=== PATIENT | female | born 1995 | race Hispanic/Latino ===

== ENCOUNTER 2019-05-09 13:03 | Emergency (ER) | payer OTHER, SELFPAY ==
[2019-05-09 13:44] LABS: #Eosinphils 0.1 thou/uL (0.0-0.7); #Lymphocytes 1.6 thou/uL (1.20-3.40); #Monocytes 0.4 thou/uL (0.11-0.59); #Neutrophils 5.3 thou/uL (1.40-6.50); %Basophils 0.5 % (0.0-1.0); %Eosinophils 0.8 % (0.0-10.0); %Lymphocytes 21.3 % (21.0-51.0); %Monocytes 5.5 % (0.0-10.0); %Neutrophils 71.9 % (42.0-75.0); Hemoglobin 12.8 g/dL (12.0-16.0); Mean Corpuscular HGB CONC 34.2 g/dL (32.0-36.0); Mean Corpuscular Hemoglobin 28.2 pg (27.0-31.0); Mean Corpuscular Volume 82.3 fL (78.0-98.0); Mean Platelet Volume 9.7 fL (7.4-10.4); Platelet Count 177 thou/uL (130-400); RBC Distribution Width 12.7 % (11.5-14.5); Red Blood Cell (RBC) Count 4.53 mill/uL (4.20-5.40); White Blood Cell (WBC) Count 7.4 thou/uL (4.8-10.8)
[2019-05-09 14:01] LABS: Bacteria/HPF None Seen HPF (None Seen); Bilirubin Negative (Negative); Blood, Urine Trace (Negative); Clarity Clear (Clear); Glucose, Urine (Dipstick) Normal (Negative); Leukocyte Negative Leu/uL (Negative); Nitrite Negative (Negative); Protein, Urine (Dipstick) Negative (Neg-Trace); RBC/HPF 0-3 HPF (0-3); Urobilinogen Normal mg/dL (Less than 2); WBC/HPF 0-3 HPF (0-3)
[2019-05-09 14:16] LABS: ALT (SGPT) 19 U/L (8-55); AST (SGOT) 16 U/L (5-34); Albumin 4.1 g/dL (3.5-5.0); Alkaline Phosphatase 91 U/L (40-110); Anion Gap 9 mmol/L (10-20); BUN (Urea Nitrogen) 8 mg/dL (7.0-18.7); Bilirubin, Total 0.3 mg/dL (0.2-1.2); Calc. Creatinine Clearance 0 mL/min (70-130); Calcium 9.2 mg/dL (7.8-10.44); Carbon Dioxide 26 mmol/L (22-29); Chloride 105 mmol/L (98-107); Estimated GFR-MDRD Greater than 90; Globulin 2.9 g/dL (2.4-3.5); Glucose 80 mg/dL (70-105); Sodium 136 mmol/L (136-145)
--- NOTE | 2019-05-09 14:42 | ULT ---
OB ULTRASOUND: INDICATION: Vaginal spotting. FINDINGS: There is a single viable intrauterine . Gestational age by ultrasound is 15 weeks 1 day. B iometry measurements are consistent. heart rate: 141. Placenta: Anterior. position: Transverse. Amniotic fluid: Adequate. Cervical length: 3.0 cm. No evidence of placenta previa. Limited anatomy evaluation. The 4-chamber heart, cord insertion, bladder, extremities, and 3-vessel cord were imaged. IMPRESSION: Fifteen-week 1 day gestation by ultrasound. No abnormality identified. POS: [facility]
== END 2019-05-09 16:44 | disposition home or self-care (01) ==
LOC: ERS 13:03
DX: O20.9 Hemorrhage in early pregnancy, unspecified (principal)
CPT/HCPCS: 36415; 76815; 80053; 81003; 81015; 85025; 86900; 86901

== ENCOUNTER 2019-06-29 10:46 | Outpatient (CLI) | payer OTHER ==
--- NOTE | 2019-06-29 12:09 | ULT ---
EXAM: Obstetrical ultrasound greater than 14 weeks: HISTORY: Encounter for supervision of normal first and second trimester, anatomy evaluation COMPARISON: 05/09/2019 FINDINGS: Single viable intrauterine fetus is noted in Cephalic presentation. heart rate equals 146 bpm. Placenta is fundal. Cervical length is 3.9. Amniotic fluid is Within normal limits. anatomy: Visualized brain, 4 chamber heart, chest, three-vessel cord, cord insert, stomach, bladder, kid neys, spine, and extremity regions are unremarkable. biometry: BPD: 5.5 cm--22 weeks 5 days Head circumference: 20.3 cm--22 weeks 3 days Abdominal circumference: 17.2 cm--22 weeks 2 days Femur length:4.1 cm--23 weeks 3 days IMPRESSION: Gestational age by ultrasound: 22 weeks 5 days MIAH by ultrasound: 10/28/2019 Estimated weight: 522 g
== END 2019-06-29 10:47 | disposition home or self-care (01) ==
LOC: BICULT 10:46
PROVIDERS: ATTEND Family Medicine
DX: Z34.02 Encounter for supervision of normal first pregnancy, second trimester (principal); Z3A.22 22 weeks gestation of pregnancy
CPT/HCPCS: 76805

== ENCOUNTER 2019-08-19 21:20 | Day surgery (SDC) | payer OTHER ==
[2019-08-19 22:00] VITALS: BMI 49.8
[2019-08-19] MEDS ORDERED: hydrALAZINE 20 MG/ML VIAL SLOW IVP PRN (22:23)
[2019-08-19] MEDS ORDERED: Acetaminophen 500 MG TAB PO SCH (22:45)
[2019-08-19 23:11] LABS: Bacteria/HPF None Seen HPF (None Seen); Bilirubin Negative (Negative); Blood, Urine Negative (Negative); Clarity Clear (Clear); Glucose, Urine (Dipstick) Normal (Negative); Leukocyte Negative Leu/uL (Negative); Nitrite Negative (Negative); Protein, Urine (Dipstick) 30 mg/dL (Neg-Trace); RBC/HPF 0-3 HPF (0-3); Squamous Epithelial 0-3 HPF (0-3); Urobilinogen Normal mg/dL (Less than 2)
--- NOTE | 2019-08-20 01:18 | SS ---
DATE OF ADMISSION: 08/19/2019 DATE OF DISCHARGE: 08/19/2019 REGULAR PHYSICIAN: Bulmaro Heath MD EVALUATING PHYSICIAN: Ashish Ontiveros MD CHIEF COMPLAINT: Abdominal pain. HISTORY OF PRESENT ILLNESS: Ms. Esteves is a 24-year-old, , G2, P0, with an estimated date of confinement of 11/05/2019, who presents complaining of sharp periumbilical pain, which she noticed earlier this morning. She denies associated leakage of fluid or vaginal bleeding. Her care has been with Dr. Heath. This is the product of IVF done by Dr. Miles in [place]. PAST OBSTETRICAL HISTORY: Includes 1 previous miscarriage after an IVF attempt. PAST MEDICAL HISTORY: None. 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 Tonsillectomy and adenoidectomy have also been performed. CURRENT MEDICATIONS: vitamins. ALLERGIES: NO KNOWN ALLERGIES. SOCIAL HISTORY: Denies tobacco, alcohol, or drug use. FAMILY HISTORY: Unremarkable. REVIEW OF SYSTEMS: Denies nausea, vomiting, fever, chills, ruptured membranes, or vaginal bleeding. PHYSICAL EXAMINATION: VITAL SIGNS: In triage, her vital signs are stable. She is afebrile. GENERAL: She is pleasant. ABDOMEN: Abdominal exam shows the abdomen to be gravid. There is no guarding or rebound, but there is some tenderness to palpation at this superior aspect of the old midline incision. heart rate tracing is stable. There are no uterine contractions seen. LABORATORY STUDIES: Urinalysis returned showing a specific gravity of 1.030 with negative leukocytes, negative nitrites, trace protein. Microscopic shows 0 to 3 rbc's, 4 to 6 wbc's, 0 to 3 squamous, and no bacteria seen. ASSESSMENT: 1. 28- and 6/7-week intrauterine . 2. Tenderness at superior aspect of the old abdominal scar. 3. No evidence of labor PLAN: The nature of her findings tonight were discussed with her in detail. She was told to rest and use Tylenol for any discomfort. I have asked her to follow up with Dr. Heath early next week for review of her symptoms. Job ID: [id number] MTDD
== END 2019-08-19 23:40 | disposition home or self-care (01) ==
LOC: L&D/OP 21:20
PROVIDERS: ATTEND Family Medicine
DX: O99.89 Other specified diseases and conditions complicating pregnancy, childbirth and the puerperium (principal); R10.815 Periumbilic abdominal tenderness; O09.293 Supervision of pregnancy with other poor reproductive or obstetric history, third trimester; Z3A.28 28 weeks gestation of pregnancy
CPT/HCPCS: 81003; 81015

== ENCOUNTER 2019-09-25 18:03 | Day surgery (SDC) | payer OTHER ==
[2019-09-25] MEDS ORDERED: hydrALAZINE 20 MG/ML VIAL SLOW IVP PRN (18:08)
[2019-09-25 18:44] VITALS: BP 131/101; TEMP 98.4; BMI 52.2
--- NOTE | 2019-09-25 19:04 | PDOC.LDHP ---
Labor and Delivery H&P Chief complaint: other (bleeding) HPI: 24 y/o G1 at 39w2d, patient of Dr. Whitmore, presents with vaginal bleeding. She reports she started bleeding this morning, it resolved, and then returned. Denies abdominal pain, LOF, or decreased FM. ROS neg for HEENT, cv, pulm, gi, gu, neuro, psych, skin, musculoskeletal or constitutional symptoms other than mentioned above. OB History Details: First Current complications: none Past Medical History: None Current medications: pre-joana vitamins Previous surgical history: none Allergies/Adverse Reactions: Allergies Allergy/AdvReac Type Severity Reaction Status Date / Time No Known Allergies Allergy Verified 09/25/19 18:33 Social history: none - Physical Exam Vital signs reviewed and normal: yes General: NAD, resting Lungs: nonlabored breathing Abdomen: gravid Extremeties: no edema FHT: category 1 (145, mod variability, + accels, no decels) [place] contractions every: intermittent - Vaginal Exam cm dilated: 1 (unchanged from clinic) Effacement: 0% Station: -3 - OB Labs Blood type: B RH: positive - Assessment 24 y/o G1 at 39w2d with no e/o active bleeding on speculum exam at this time. No e/o abruption, active labor or acute process. status reassuring with reactive NST. - Plan -: D/c home with precautions. Advised to keep appointment for tomorrow.
[2019-09-25 19:09] LABS: #Basophils 0.1 thou/uL (0.0-0.2); #Eosinphils 0.1 thou/uL (0.0-0.7); #Lymphocytes 1.7 thou/uL (1.20-3.40); #Monocytes 0.4 thou/uL (0.11-0.59); #Neutrophils 7.1 thou/uL (1.40-6.50); %Basophils 0.9 % (0.0-1.0); %Eosinophils 0.6 % (0.0-10.0); %Lymphocytes 18.1 % (21.0-51.0); %Monocytes 3.7 % (0.0-10.0); %Neutrophils 76.7 % (42.0-75.0); Hemoglobin 12.5 g/dL (12.0-16.0); Mean Corpuscular HGB CONC 35.2 g/dL (32.0-36.0); Mean Corpuscular Hemoglobin 28.9 pg (27.0-31.0); Mean Corpuscular Volume 82.2 fL (78.0-98.0); Mean Platelet Volume 9.4 fL (7.4-10.4); Platelet Count 188 thou/uL (130-400); RBC Distribution Width 13.4 % (11.5-14.5); Red Blood Cell (RBC) Count 4.34 mill/uL (4.20-5.40); White Blood Cell (WBC) Count 9.3 thou/uL (4.8-10.8)
--- NOTE | 2019-09-25 19:13 | PDOC.LDHP ---
Labor and Delivery H&P Chief complaint: other (BP check) HPI: 24 y/o G1 at 34w1d, patient of Dr. Heath presents for BP check. Patient had elevated BPs and was told to come in. Denies GERARDO, vision changes, RUQ pain, VB, LOF, ctx, or other concerns. +FM. IVF . ROS neg for HEENT, cv, pulm, gi, gu, neuro, psych, skin, musculoskeletal or constitutional symptoms other than mentioned above. OB History Details: First Current complications: none Past Medical History: Hx borderline ovarian tumor Current medications: pre-joana vitamins Previous surgical history: appendectomy, other (BSO, IVF) Allergies/Adverse Reactions: Allergies Allergy/AdvReac Type Severity Reaction Status Date / Time No Known Allergies Allergy Verified 09/25/19 18:33 Social history: none - Physical Exam Vital signs reviewed and normal: yes General: NAD, resting Lungs: nonlabored breathing Abdomen: gravid Extremeties: no edema FHT: category 1 (140s, mod variability, + accels, no decels) [place] contractions every: none - Assessment 24 y/o G1 at 34w1d with mild range BPs, normal labs and urine. No e/o preeclampsia at this time. status reassuring with reactive NST. - Plan -: D/c home with precautions. Has appt Wednesday. Advised to keep all appointments.
[2019-09-25 19:27] LABS: ALT (SGPT) Less than 7 U/L (8-55); AST (SGOT) 9 U/L (5-34); Albumin 3.3 g/dL (3.5-5.0); Alkaline Phosphatase 183 U/L (40-110); Anion Gap 13 mmol/L (10-20); BUN (Urea Nitrogen) 9 mg/dL (7.0-18.7); Bilirubin, Total Less than 0.2 mg/dL (0.2-1.2); Calc. Creatinine Clearance 323 mL/min (70-130); Carbon Dioxide 18 mmol/L (22-29); Chloride 109 mmol/L (98-107); Estimated GFR-MDRD Greater than 90; Globulin 3.4 g/dL (2.4-3.5); Glucose 72 mg/dL (70-105); Potassium 3.9 mmol/L (3.5-5.1); Protein, Total 6.7 g/dL (6.0-8.3); Sodium 136 mmol/L (136-145)
[2019-09-25 19:44] LABS: Creatinine, Urine 69.51 mg/dL (47-110)
== END 2019-09-25 20:11 | disposition home health service (06) ==
LOC: L&D/OP 18:03
PROVIDERS: ATTEND Family Medicine
DX: O99.89 Other specified diseases and conditions complicating pregnancy, childbirth and the puerperium (principal); R03.0 Elevated blood-pressure reading, without diagnosis of hypertension; Z3A.34 34 weeks gestation of pregnancy
CPT/HCPCS: 36415; 80053; 82570; 84156; 85025; 99283

== ENCOUNTER 2019-09-27 13:21 | Day surgery (SDC) | payer OTHER ==
[2019-09-27 14:11] VITALS: BMI 52.2
[2019-09-27 14:33] LABS: Hemoglobin 11.8 g/dL (12.0-16.0); Mean Corpuscular HGB CONC 34.3 g/dL (32.0-36.0); Mean Corpuscular Hemoglobin 28.1 pg (27.0-31.0); Mean Corpuscular Volume 81.8 fL (78.0-98.0); Platelet Count 203 thou/uL (130-400); RBC Distribution Width 13.5 % (11.5-14.5); Red Blood Cell (RBC) Count 4.22 mill/uL (4.20-5.40); White Blood Cell (WBC) Count 9.7 thou/uL (4.8-10.8)
--- NOTE | 2019-09-27 14:45 | ULT ---
ULTRASOUND BIOPHYSICAL PROFILE: DATE: 09/27/2019 HISTORY: 24-year-old female in third trimester, with gestational hypertension FINDINGS: breathin tone: 2 movement: 2 Amniotic fluid volume: 2 IMPRESSION: Normal biophysical profile score of 8 out of 8, excluding the nonstress test.
--- NOTE | 2019-09-27 14:49 | ULT ---
EXAM: OB ultrasound, biophysical profile, and umbilical artery ultrasound COMPARISON: None HISTORY: Gestational hypertension at 34 weeks TECHNIQUE: Multiplanar grayscale and color Doppler images were obtained in a transabdominal ult rasound. FINDINGS: There is a single live intrauterine with heart rate of 143 bpm. Estimated weight is 2449 g. Average age of the fetus based off today's examination is 35 weeks 0 days. BPD 8.86 cm -- 35 weeks 6 days HC 31.58 cm -- 35 weeks 5 days AC 30.01 cm -- 34 weeks 0 days FL 6.75 cm -- 34 weeks 5 days The placenta is anterior in location without focal abnormality. MARIA LUISA is 16.5 cm which is normal. The cervix is normal in length. There is no evidence of placenta previa. A biophysical profile was performed. The fetus scored 8 of 8, which is normal. An umbilical artery ultrasound was performed. There is persistent diastolic flow within the umbilical artery and normal umbilical artery ratios. IMPRESSION: 1. Single live intrauterine with estimated age of 35 weeks 0 days. 2. Normal biophysical profile 3. Unremarkable umbilical artery ultrasound
[2019-09-27 14:56] LABS: ALT (SGPT) Less than 7 U/L (8-55); AST (SGOT) 10 U/L (5-34); Albumin 3.4 g/dL (3.5-5.0); Alkaline Phosphatase 187 U/L (40-110); Anion Gap 13 mmol/L (10-20); BUN (Urea Nitrogen) 10 mg/dL (7.0-18.7); Bilirubin, Total 0.2 mg/dL (0.2-1.2); Calc. Creatinine Clearance 297 mL/min (70-130); Calcium 8.8 mg/dL (7.8-10.44); Carbon Dioxide 18 mmol/L (22-29); Chloride 111 mmol/L (98-107); Estimated GFR-MDRD Greater than 90; Globulin 3.4 g/dL (2.4-3.5); Glucose 99 mg/dL (70-105); Potassium 3.8 mmol/L (3.5-5.1); Protein, Total 6.8 g/dL (6.0-8.3); Sodium 138 mmol/L (136-145)
[2019-09-27 17:19] LABS: Creatinine, Urine 297.94 mg/dL (47-110)
--- NOTE | 2019-09-29 14:15 | ULT ---
EXAM: OB ultrasound, biophysical profile, and umbilical artery ultrasound COMPARISON: None HISTORY: Gestational hypertension at 34 weeks TECHNIQUE: Multiplanar grayscale and color Doppler images were obtained in a transabdominal ult rasound. FINDINGS: There is a single live intrauterine with heart rate of 143 bpm. Estimated weight is 2449 g. Average age of the fetus based off today's examination is 35 weeks 0 days. BPD 8.86 cm -- 35 weeks 6 days HC 31.58 cm -- 35 weeks 5 days AC 30.01 cm -- 34 weeks 0 days FL 6.75 cm -- 34 weeks 5 days The placenta is anterior in location without focal abnormality. MARIA LUISA is 16.5 cm which is normal. The cervix is normal in length. There is no evidence of placenta previa. A biophysical profile was performed. The fetus scored 8 of 8, which is normal. An umbilical artery ultrasound was performed. There is persistent diastolic flow within the umbilical artery and normal umbilical artery ratios. IMPRESSION: 1. Single live intrauterine with estimated age of 35 weeks 0 days. 2. Normal biophysical profile 3. Unremarkable umbilical artery ultrasound Transcribed Date/Time: 09/29/2019 2:15 PM
== END 2019-09-27 21:30 | disposition home health service (06) ==
LOC: L&D/OP 13:21
PROVIDERS: ATTEND Family Medicine
DX: O13.3 Gestational [pregnancy-induced] hypertension without significant proteinuria, third trimester (principal); Z3A.34 34 weeks gestation of pregnancy
CPT/HCPCS: 36415; 76815; 76819; 80053; 82570; 84156; 85027; 93975; 99283

== ENCOUNTER 2019-10-16 11:32 | Outpatient (CLI) | payer OTHER ==
[2019-10-17 13:12] LABS: SARS-CoV-2 MS2 Positive; SARS-CoV-2 N Gene Negative; SARS-CoV-2 S Gene Negative; SARS-CoV-2 orf1ab Negative
== END 2019-10-16 11:33 | disposition home or self-care (01) ==
LOC: SCSLAB 11:32
PROVIDERS: ATTEND Family Medicine
DX: Z01.812 Encounter for preprocedural laboratory examination (principal); Z11.59 Encounter for screening for other viral diseases
CPT/HCPCS: 87635; U0003

== ENCOUNTER 2019-10-18 19:30 | Inpatient (IN) | payer OTHER ==
[2019-10-18] MEDS: Lactated Ringer's 1,000 ML IV SCH (21:00)
[2019-10-18 21:01] VITALS: BMI 50.5
[2019-10-18] MEDS ORDERED: Misoprostol 200 MCG TAB PR PRN (21:18)
[2019-10-18] MEDS ORDERED: HYDROcodone/Acetaminophen 5/325 mg Tablet PO PRN (21:18)
[2019-10-18] MEDS ORDERED: Butorphanol Tartrate 1 MG/ML VIAL SLOW IVP PRN (21:18)
[2019-10-18] MEDS ORDERED: Carboprost 250 MCG/ML AMP IM PRN (21:18)
[2019-10-18] MEDS ORDERED: Ondansetron PF 4 MG/2 ML Vial IVP PRN (21:18)
[2019-10-18] MEDS ORDERED: Promethazine HCl 25 MG/ML VIAL IM PRN (21:18)
[2019-10-18] MEDS ORDERED: Ibuprofen 800 MG TAB PO PRN (21:18)
[2019-10-18] MEDS ORDERED: Diphenoxylate HCl/Atropine Tablet PO PRN (21:18)
[2019-10-18] MEDS ORDERED: hydrALAZINE 20 MG/ML VIAL SLOW IVP PRN (21:18)
[2019-10-18] MEDS ORDERED: NS / Oxytocin 40 units/1000ml 1,000 ML IV PRN (21:18)
[2019-10-18] MEDS ORDERED: Lidocaine 1% (PF) 30 ML VIAL SC PRN (21:18)
[2019-10-18] MEDS ORDERED: NS w/ Oxytocin 10 units 500 ML IV SCH ×2 (21:30)
[2019-10-18 21:50] LABS: Hemoglobin 12.1 g/dL (12.0-16.0); Mean Corpuscular HGB CONC 34.6 g/dL (32.0-36.0); Mean Corpuscular Hemoglobin 28.5 pg (27.0-31.0); Mean Corpuscular Volume 82.5 fL (78.0-98.0); Mean Platelet Volume 10.2 fL (7.4-10.4); Platelet Count 189 thou/uL (130-400); RBC Distribution Width 13.6 % (11.5-14.5); Red Blood Cell (RBC) Count 4.26 mill/uL (4.20-5.40); White Blood Cell (WBC) Count 9.6 thou/uL (4.8-10.8)
[2019-10-18] MEDS: Misoprostol 100 MCG TAB VAG SCH (22:26)
[2019-10-18 22:28] LABS: Syphilis Antibody Nonreactive (Nonreactive); Syphilis Antibody Index 0.03 S/CO (<1.00 Non-Reactive)
[2019-10-18 22:49] LABS: ALT (SGPT) Less than 7 U/L (8-55); AST (SGOT) 10 U/L (5-34); Albumin 3.4 g/dL (3.5-5.0); Alkaline Phosphatase 200 U/L (40-110); Anion Gap 13 mmol/L (10-20); BUN (Urea Nitrogen) 13 mg/dL (7.0-18.7); Bilirubin, Total 0.2 mg/dL (0.2-1.2); Calc. Creatinine Clearance 297 mL/min (70-130); Carbon Dioxide 19 mmol/L (22-29); Chloride 110 mmol/L (98-107); Estimated GFR-MDRD Greater than 90; Globulin 2.9 g/dL (2.4-3.5); Glucose 115 mg/dL (70-105); Protein, Total 6.3 g/dL (6.0-8.3); Sodium 138 mmol/L (136-145)
[2019-10-18 23:02] LABS: HBSAg Index 0.18 S/CO (0-0.99); Hep B Surf Ag Non-Reactive S/CO (NonReactive)
[2019-10-19] MEDS: Misoprostol 100 MCG TAB VAG SCH ×3 (01:43→15:44)
[2019-10-19] MEDS ORDERED: Terbutaline Sulfate 1 MG/ML VIAL ONE (02:48)
[2019-10-19] MEDS: Lactated Ringer's 1,000 ML IV SCH ×3 (02:57→21:21)
[2019-10-19] MEDS ORDERED: Terbutaline Sulfate 1 MG/ML VIAL SC SCH (03:45)
[2019-10-19 07:50] LABS: Creatinine, Urine 160.88 mg/dL (47-110)
[2019-10-19] MEDS ORDERED: Bicitra 30 ML UDCUP ONE (11:30)
[2019-10-19] MEDS ORDERED: MORPHINE 5 MG/10 ML PF VIAL ONE (11:39)
[2019-10-19] MEDS ORDERED: Fentanyl 100 MCG/2 ML VIAL ONE (11:39)
[2019-10-19] MEDS ORDERED: Ketorolac Tromethamine 30 MG/ML VIAL ONE (11:40)
[2019-10-19] MEDS ORDERED: EPHEDRINE 25 MG/5 ML SYRINGE ONE (11:40)
[2019-10-19] MEDS ORDERED: Oxytocin 10 UNITS/ML VIAL ONE (11:40)
[2019-10-19] MEDS ORDERED: PHENYLEPHRINE-NS 100 MCG/ML 10 ML SYRINGE ONE (11:40)
[2019-10-19] MEDS ORDERED: Dexamethasone 4 mg/ml Vial ONE (11:40)
[2019-10-19] MEDS ORDERED: Ondansetron PF 4 MG/2 ML Vial ONE (11:48)
[2019-10-19] MEDS ORDERED: CEFAZOLIN 1 GM VIAL ONE (12:34)
[2019-10-19] MEDS ORDERED: Azithromycin 500 MG VIAL ONE (12:37)
[2019-10-19] MEDS ORDERED: Ondansetron HCl/PF 4 MG/2 ML Vial IVP PRN (13:34)
[2019-10-19] MEDS ORDERED: Promethazine HCl 25 MG SUPP PR PRN (13:34)
[2019-10-19] MEDS ORDERED: L&D-Morphine 4 MG/ML VIAL SLOW IVP PRN (13:34)
[2019-10-19] MEDS ORDERED: Ondansetron PF 4 MG/2 ML Vial IVP PRN ×2 (13:34→15:42)
[2019-10-19] MEDS ORDERED: Naloxone HCl 0.4 mg/ml Vial IVP PRN ×2 (13:34)
[2019-10-19] MEDS ORDERED: HYDROmorphone 2 MG/ML VIAL SLOW IVP PRN (13:34)
[2019-10-19] MEDS ORDERED: Meperidine HCl/PF 25 MG/ML VIAL SLOW IVP PRN (13:34)
[2019-10-19] MEDS ORDERED: diphenhydrAMINE 50 MG/ML VIAL IVP PRN (13:34)
[2019-10-19] MEDS ORDERED: Naloxone HCl 0.4 mg/ml Vial IV PRN (13:34)
[2019-10-19] MEDS ORDERED: Promethazine HCl 25 MG/ML VIAL IM PRN (13:34)
[2019-10-19] MEDS ORDERED: Communication Order-Pharmacy FS SCH (13:45)
--- NOTE | 2019-10-19 14:35 | PDOC.OPDEL ---
OB Operative/Delivery Note Delivery Dr/Surgeon: Kumar Assist: Heide Pre-Delivery Diagnosis: medically indicated induction, non-reassuring tracing, other (gHTN) Procedure/Post Delivery Dx: primary low transverse CS (breech) Weeks gestation: 37 (37.4) Anesthesia: spinal - Findings A Sex: male Weight: 4 lb 12.121 oz - 1 min: 8 - 5 min: 9 - Additional Findings/Plan Placenta delivered: manual removal findings: low transverse hysterotomy without extension Estimated blood loss: 620 Compilations/Other Findings: Date of Procedure: 10/19/19 Resident Surgeon: Heide Attending Surgeon: Kumar Procedure: Primary low transverse caesarean section Preoperative Diagnosis: 1)Term intrauterine 2)Preeclampsia 3)Non-reassuring FHT 4)Failed Induction of Labor 5)In-vitro Fertilization 6)Obesity Postoperative Diagnosis: 1)Term intrauterine , delivered 2)Breech presentation 3)Same as above Anesthesia: spinal Indications: The patient is a 24 year old female at 37.4 weeks gestation who initially presented for a mIOL for preeclampsia. After initial ripening agent, several prolonged decelerations of the heart rate occurred. IOL was stopped, and baby still had continued NRFHT and thus patient was taken for pLTCS. Procedure in Detail: After risks, benefits, and alternatives were explained to the patient, she gave informed consent. Pre-operative antibiotics included Cefazolin 3 gram IV and Azithromycin 500mg. The patient was taken to the operating room and spinal anesthesia was initiated. She was placed in the supine position with a left tilt and prepped and draped in usual sterile fashion. A Pfannenstiel incision was made with a scalpel and carried down to the level of the fascia which was sharply nicked. Small bleeders were coagulated with the Bovie. The fascial cut was extended bilaterally with Ahumada scissors. The inferior and superior edges of the cut fascial edges were elevated with Yodit clamps and the underlying rectus muscles were sharply and bluntly dissected free. The recti were divided digitally and retracted manually. The peritoneum was entered bluntly and retracted manually. Bladder blade was placed. Bladder flap was created with Metzenbaum scissors. A low transverse score was made with the scalpel and the uterus was entered in the midline bluntly. Clear fluid was seen. The hysterotomy was extended manually. The infant was then noted to be complete breech presentation and was delivered manually. Mouth and nares were bulb suctioned. Cord clamped and cut and grossly normal male was handed to waiting nurse. Cord blood was obtained. Placenta was manually extracted, found to be intact with 3 vessel cord and bilobed with calcifications and thus was sent for pathology. The uterus was externalized and the endometrium was curetted with a dry lap. The bladder blade was replaced and the uterus was closed with a running locking #1 Monocryl suture followed by a single [id number] #1 Monocryl for hemostasis. An area of adhesions were noted on the anterior aspect of the uterus that were oozing, thus Bovie electrocautery was used to remove a portion of the adhesion and achieve hemostasis. Following this hemostasis was noted. The abdomen was irrigated with saline and suctioned free of clots. Supra film was placed over the anterior uterus. The uterus was internalized and the hysterotomy was again noted to be hemostatic. The peritoneum was then closed with a running, nonlocking 3-0 vicryl. The fascia was closed with a running non-locking 0-PDS suture. The subcutaneous tissue was irrigated and bleeders were coagulated with the Bovie. The subcutaneous tissue was then closed with 3 vertical mattress sutures using 3-0 vicryl. The skin was approximated with henry and a wound vac was placed. All counts were correct x3. The patient tolerated the procedure well and was taken to the recovery room in stable condition. Estimated Blood Loss: 620 ml Complications: None Specimens: Cord blood sent to lab for blood type. Placenta sent for pathology. Findings: Grossly normal male infant with Apgars of 8 and 9. Mild adhesions noted on anterior uterus. Bilobed placenta with calcifications sent for pathology. Drains: Oliver to gravity draining clear urine Post delivery plan: routine recovery
[2019-10-19] MEDS ORDERED: Meperidine HCl/PF 25 MG/ML VIAL IM PRN (15:42)
[2019-10-19] MEDS ORDERED: hydrALAZINE 20 MG/ML VIAL SLOW IVP PRN (15:42)
[2019-10-19] MEDS ORDERED: HYDROcodone/Acetaminophen 5/325 mg Tablet PO PRN (15:42)
[2019-10-19] MEDS ORDERED: Simethicone Chewable 80 MG TAB PO PRN (15:42)
[2019-10-19] MEDS ORDERED: diphenhydrAMINE 25 MG CAP PO PRN (15:42)
[2019-10-19] MEDS ORDERED: Bisacodyl 10 MG SUPP PR PRN (15:42)
[2019-10-19] MEDS ORDERED: Ketorolac Tromethamine 30 MG/ML VIAL IVP PRN (20:00)
[2019-10-19] MEDS: Ketorolac Tromethamine 30 MG/ML VIAL IVP SCH (20:20)
[2019-10-19] MEDS: Docusate Calcium (SURFAK) 240 MG CAP PO SCH (21:21)
[2019-10-19] MEDS: Ferrous Sulfate 325 MG TAB PO SCH (21:24)
[2019-10-20] MEDS ORDERED: HYDROcodone/Acetaminophen 5/325 mg Tablet PO PRN (02:00)
[2019-10-20] MEDS ORDERED: Butorphanol Tartrate 1 MG/ML VIAL SLOW IVP PRN (02:00)
[2019-10-20] MEDS: Ketorolac Tromethamine 30 MG/ML VIAL IVP SCH ×2 (02:23→08:22)
[2019-10-20 06:00] LABS: Hemoglobin 10.2 g/dL (12.0-16.0); Mean Corpuscular HGB CONC 34.3 g/dL (32.0-36.0); Mean Corpuscular Hemoglobin 28.4 pg (27.0-31.0); Mean Corpuscular Volume 82.6 fL (78.0-98.0); Platelet Count 163 thou/uL (130-400); RBC Distribution Width 13.5 % (11.5-14.5); Red Blood Cell (RBC) Count 3.61 mill/uL (4.20-5.40); White Blood Cell (WBC) Count 10.4 thou/uL (4.8-10.8)
[2019-10-20] MEDS ORDERED: Adacel (T-DAP) 0.5 ML SYRINGE IM ONE (09:00)
[2019-10-20] MEDS: Docusate Calcium (SURFAK) 240 MG CAP PO SCH ×2 (09:12→21:39)
[2019-10-20] MEDS: Ferrous Sulfate 325 MG TAB PO SCH ×2 (09:13→21:23)
[2019-10-20] MEDS: Ibuprofen 800 MG TAB PO SCH ×2 (14:12→21:38)
[2019-10-21] MEDS: HYDROcodone/Acetaminophen 5/325 mg Tablet PO PRN ×2 (00:46→18:44)
[2019-10-21] MEDS: Ibuprofen 800 MG TAB PO SCH ×3 (05:37→22:46)
[2019-10-21] MEDS: Docusate Calcium (SURFAK) 240 MG CAP PO SCH ×2 (10:11→22:46)
[2019-10-21] MEDS: Ferrous Sulfate 325 MG TAB PO SCH ×2 (10:11→22:46)
[2019-10-21] MEDS ORDERED: Sodium Chloride 0.9% 10 ML ONE (12:58)
[2019-10-22] MEDS: Ibuprofen 800 MG TAB PO SCH ×2 (05:44→13:25)
[2019-10-22] MEDS: Ferrous Sulfate 325 MG TAB PO SCH (08:53)
[2019-10-22] MEDS: Docusate Calcium (SURFAK) 240 MG CAP PO SCH (08:56)
[2019-10-22 08:57] VITALS: BP 135/91; TEMP 98.3
== END 2019-10-22 18:50 | disposition home or self-care (01) | DRG 788 ==
LOC: L&D 20:42 → 3SW 10-19 16:24
PROVIDERS: ADMIT Family Medicine; ATTEND Family Medicine
PROC: 10D00Z1 Extraction of Products of Conception, Low, Open Approach (ICD-10-PCS; principal; 2019-10-18)
DX: O32.1XX0 Maternal care for breech presentation, not applicable or unspecified (principal); O76 Abnormality in fetal heart rate and rhythm complicating labor and delivery; Z3A.37 37 weeks gestation of pregnancy; Z37.0 Single live birth; O99.214 Obesity complicating childbirth; E66.9 Obesity, unspecified; O13.4 Gestational [pregnancy-induced] hypertension without significant proteinuria, complicating childbirth
CPT/HCPCS: 36415; 51702; 80053; 82570; 84156; 85027; 86780; 86850; 86900; 86901; 87340; J0456; J0690; J1100; J1885; J2274; J2405; J2590; J3010; J3105

== ENCOUNTER 2021-06-16 09:23 | Outpatient (CLI) | payer OTHER | END 2021-06-16 09:24 | disposition home or self-care (01) | LOC: BICULT 09:23 | PROVIDERS: ATTEND Family Medicine | DX: O09.893 Supervision of other high risk pregnancies, third trimester (principal); Z3A.31 31 weeks gestation of pregnancy | CPT/HCPCS: 76816 ==

== ENCOUNTER 2023-01-26 08:03 | Outpatient (CLI) | payer OTHER | END 2023-01-26 08:04 | disposition home or self-care (01) | LOC: BICMAMMO 08:03 | DX: Z13.820 Encounter for screening for osteoporosis (principal); E28.319 Asymptomatic premature menopause; M85.88 Other specified disorders of bone density and structure, other site | CPT/HCPCS: 77080 ==